=== PATIENT | female | born 1950 | race Two or more races ===

== ENCOUNTER 2022-12-05 10:21 | Emergency (ER) | payer OTHER ==
[~2022-12-05] VITALS: Ht 167.6 cm; Wt 68.1 kg
[2022-12-05 12:35] VITALS: BP 116/55; PULSE 72; RESP 18; TEMP 98.7; O2SAT 93
[2022-12-05] MEDS ORDERED: HYDROcodone-ACET 5/325MG TAB PO ONE (13:45)
[2022-12-05] MEDS ORDERED: ACET-1080 PO (14:02)
== END 2022-12-05 14:14 | disposition home or self-care (01) ==
LOC: ER 10:21
DX: S82.142A Displaced bicondylar fracture of left tibia, initial encounter for closed fracture (principal); Z79.1 Long term (current) use of non-steroidal anti-inflammatories (NSAID); W01.0XXA Fall on same level from slipping, tripping and stumbling without subsequent striking against object, initial encounter; Y93.89 Activity, other specified; Y92.89 Other specified places as the place of occurrence of the external cause; Y99.8 Other external cause status
CPT/HCPCS: 29505; 73562